=== PATIENT | male | born 1995 ===

== ENCOUNTER 2024-05-14 22:17 | Emergency (ER) | payer SELFPAY ==
[~2024-05-14] VITALS: Ht 149.9 cm; Wt 43.0 kg
[2024-05-14 22:22] VITALS: BP 125/63; PULSE 60; RESP 20; TEMP 98.4
[2024-05-14] MEDS ORDERED: IBUP-45 PO (22:29)
== END 2024-05-14 23:06 | disposition left against medical advice (07) ==
LOC: EMS 22:17
DX: K08.89 Other specified disorders of teeth and supporting structures (principal); Z53.21 Procedure and treatment not carried out due to patient leaving prior to being seen by health care provider